=== PATIENT | male | born 1990 | race Caucasian/White ===

== ENCOUNTER 2022-11-20 06:15 | Emergency (ER) | payer BC ==
[~2022-11-20] VITALS: Ht 180.3 cm; Wt 88.5 kg
[~2022-11-20 06:15] MED LIST: ESCI10TA PO
[2022-11-20] MEDS ORDERED: KETOROLAC TROMETHAMINE INJ 30 MG/ML VIAL IV ONE (06:30)
[2022-11-20] MEDS ORDERED: IV NS 0.9% 1,000 ML IV ONE (06:30)
--- NOTE | 2022-11-20 06:30 | NUR ---
[id number] FROM [place], PT CC OF PULLING PAIN OF UPPER EXTREMITIES TO HIS CHEST SINCE 0500. PT WAS HERE 0525 AND LEFT WHEN CALLED TO TRIAGE AT [phone]
[2022-11-20] MEDS ORDERED: KETOROLAC TROMETHAMINE 15 MG/ML VIAL ONE (06:39)
--- NOTE | 2022-11-20 06:45 | NUR ---
20G STARTED ON R AC
--- NOTE | 2022-11-20 06:46 | NUR ---
DR. PICHARDO AT BEDSIDE
[2022-11-20] MEDS ORDERED: NITROGLYCERIN 0.4 MG/TAB BOTTLE ONE ×2 (06:54→10:05)
[2022-11-20] MEDS ORDERED: ASPIRIN 325 MG TABLET ONE (06:55)
--- NOTE | 2022-11-20 06:59 | NUR ---
FIRST DOSE OF NITRO SL GIVEN
[2022-11-20] MEDS ORDERED: ASPIRIN 81 MG TAB.CHEW PO ONE (07:00)
[2022-11-20] MEDS ORDERED: NITROGLYCERIN 0.4 MG/TAB BOTTLE SL ONE ×2 (07:00→10:30)
[2022-11-20 07:01] LABS: CALCIUM, SERUM 10.1 mg/dL (8.5-10.1); CARBON DIOXIDE 19 mmol/L (21-32); CHLORIDE 102 mmol/L (98-107); CREATININE 1.1 mg/dL (0.6-1.3); GLUCOSE 172 mg/dL (74-106); POTASSIUM 3.2 mmol/L (3.5-5.1); SODIUM SERUM 139 mmol/L (136-145); UREA NITROGEN, BLOOD 16 mg/dL (7-18)
--- NOTE | 2022-11-20 07:04 | NUR ---
FIRST DOSE OF NITRO EFFECTIVE. PT STATES PAIN IS RELIEVED
[2022-11-20 07:13] LABS: BASOPHILS % (AUTO) 0.3 % (0.0-2.0); EOSINOPHILS % (AUTO) 0.8 % (0.0-6.0); HEMATOCRIT 47 % (39-51); HEMOGLOBIN 15.8 g/dL (13.5-17.5); LYMPHOCYTES # (AUTO) 2.8 K/uL (0.8-4.8); LYMPHOCYTES % (AUTO) 25.9 % (20.0-44.0); MEAN CORPUSCULAR HGB CONC 34 g/dl (31.0-36.0); MEAN CORPUSCULAR VOLUME 85 fL (80-96); MONOCYTES # (AUTO) 0.5 K/uL (0.1-1.30); MONOCYTES % (AUTO) 4.9 % (2.0-12.0); NEUTROPHILS # (AUTO) 7.3 K/uL (1.8-8.9); NEUTROPHILS % (AUTO) 68.1 % (43.0-81.0); PLATELET COUNT (AUTO) 305 K/uL (150-450); RED BLOOD CELL COUNT(AUTO) 5.48 MIL/uL (4.5-6.0); WHITE BLOOD COUNT (AUTO) 10.7 K/uL (4.3-11.0)
--- NOTE | 2022-11-20 07:30 | NUR ---
COVID SWAB OBTAINED
--- NOTE | 2022-11-20 07:46 | NUR ---
ANANYA DE SANTIAG[facility] [phone]
--- NOTE | 2022-11-20 07:55 | NUR ---
FAXED EKG TO [facility] [phone]
--- NOTE | 2022-11-20 07:57 | NUR ---
[facility] HAS FAX EKG FAX, DR. ARREDONDO IS CARDIO AND ABUNDIO WILL CALL US BACK.
--- NOTE | 2022-11-20 08:02 | NUR ---
[facility] IS CLOSED TO STEMI
--- NOTE | 2022-11-20 08:05 | NUR ---
ABUNDIO CALLED FROM [facility] PER DR. ALEXANDRA NOT STEMI BUT ST DREPRESSION AND PT NEEDS TO BE TRANSFERED TO HIGHER LEVEL OF CARE.
--- NOTE | 2022-11-20 08:10 | NUR ---
CALLED [facility] [phone] NO BED AVAIALABLE TO HIGHER LEVEL OF CARE PER LEAH.
--- NOTE | 2022-11-20 08:12 | NUR ---
CALLED [facility] ER [phone] THEY ARE GETTING A STEMI AND UNABLE TO ACCEPT STEMI.
--- NOTE | 2022-11-20 08:13 | NUR ---
CALLED [facility] [phone]
--- NOTE | 2022-11-20 08:15 | NUR ---
SPOKE TO [employer]MA[employer]ODUCER REGARDING PATIENT TRANSFER. LEFT NUMBER FOR [facility], . EMAIL PRODUCER REQUESTING, CLINICALS. EKG AND LAB TO BE FAXED OVER. [phone].
--- NOTE | 2022-11-20 08:26 | NUR ---
CALLED [facility] [phone] LEFT VM.
--- NOTE | 2022-11-20 08:34 | NUR ---
TRIED CALLING [facility]PITAL[facility] [phone]. UNABLE TO REACH, NOR LEAVE .
--- NOTE | 2022-11-20 08:37 | NUR ---
[facility] [phone] MIC REQUESTING CLINICALS FAXED TO [phone]
--- NOTE | 2022-11-20 08:41 | NUR ---
DR HIRSCH AT [facility] CALLED. SPEAKING TO DR PICHARDO.
--- NOTE | 2022-11-20 08:45 | NUR ---
PT ACCEPTED TO [facility] UNDER DR. HIRSCH.
--- NOTE | 2022-11-20 08:53 | NUR ---
KIAN FROM [facility] CALLED [phone] REQUESTING CLINICALS WITH MD NOTES FAXED TO [facility] [phone].
--- NOTE | 2022-11-20 09:25 | NUR ---
RECEIVED A CALL FROM [facility] ASKING THE CLINICALS TO BE FAXED TO FAX # [phone]
--- NOTE | 2022-11-20 10:07 | NUR ---
CALLED [facility] [phone] GIVING AUTH FOR TRANSPORT #[id number] WILL CALL WITH BED ASSIGNMENT.
[2022-11-20] MEDS ORDERED: MORPHINE SULFATE INJ 4 MG/ML DISP.SYRIN ONE ×2 (10:12→15:07)
[2022-11-20] MEDS ORDERED: ONDANSETRON HCL/PF 4 MG/2 ML VIAL ONE (10:12)
--- NOTE | 2022-11-20 10:18 | NUR ---
CALLED [facility] HOSPITALIST, DR. HIRSCH [phone] PICHARDO.
[2022-11-20] MEDS ORDERED: HEPARIN SODIUM, PORCINE 5000 UNITS/1 ML VIAL IV ONE (10:30)
[2022-11-20] MEDS ORDERED: MORPHINE SULFATE INJ 2 MG/ML DISP.SYRIN IV ONE ×2 (10:30→15:30)
[2022-11-20] MEDS ORDERED: HEPARIN INFUSION/D5W 500 ML IV ONE (10:30)
[2022-11-20] MEDS ORDERED: ONDANSETRON HCL/PF 4 MG/2 ML VIAL IV ONE (10:30)
--- NOTE | 2022-11-20 10:40 | NUR ---
CALLED [facility] ON WILL CALL WITH VINAY.
--- NOTE | 2022-11-20 10:41 | NUR ---
[facility] DOES NOT HAVE ALS TODAY.
[2022-11-20] MEDS ORDERED: HEPARIN INFUSION/D5W 0 ML IV ONE (10:53)
--- NOTE | 2022-11-20 10:56 | NUR ---
PT GOING TO [facility] ER UNDER DR. AMOS HIRSCH. PLEASE CALL [phone] FOR REPORT.
--- NOTE | 2022-11-20 10:59 | NUR ---
CALLED [facility] ETA 1400 PER VINAY.
--- NOTE | 2022-11-20 11:08 | NUR ---
REPORT GIVEN TO THEO NOGUERA FROM [facility].
--- NOTE | 2022-11-20 11:56 | NUR ---
CLINICALS AND FACESHEET FAXED TO [facility] FROM [facility] AT [phone].
[2022-11-20 12:46] VITALS: BP 132/82
--- NOTE | 2022-11-20 12:48 | NUR ---
PT RESTING IN BED BREATHING EVEN AND UNLABORED. NO ACUTE DISTRESS. MONITOR IN PLACE. VITAL SIGNS WNL.
--- NOTE | 2022-11-20 15:29 | NUR ---
HEPARIN INFUSION CONTINUED UPON TRANSFERING THE PT TO [facility].
--- NOTE | 2022-11-20 15:30 | NUR ---
THE PATIENT IS TRANSFERED TO [facility] VIA ACLS PROTOCOL AND PRIMARY NURSE YANG.
== END 2022-11-20 15:35 ==
LOC: ER 06:22
DX: I21.4 Non-ST elevation (NSTEMI) myocardial infarction (principal); I20.0 Unstable angina; E87.6 Hypokalemia; F41.9 Anxiety disorder, unspecified; Z79.899 Other long term (current) drug therapy; Z20.822 Contact with and (suspected) exposure to COVID-19
CPT/HCPCS: 99291; 96365; 96375; 96361; 87426; 93005 ×2; 71045; 96376; 85025; 80048; 85610; 85730; 36415; 84484 ×3; 87081; J1644 ×2; J2270 ×2; J2405; J1885; C9803; J7030